=== PATIENT | male | born 1965 | race Caucasian/White ===

== ENCOUNTER 2018-01-31 00:06 | Inpatient (IN) | payer MEDICAID ==
[~2018-01-31] VITALS: Ht 177.8 cm; Wt 87.8 kg
[~2018-01-31 00:06] MED LIST: ALBU90AE INH; CEFD300C37 PO; DOCU-131 PO; DOXY100T PO; ENOX80SY5 SQ; HYDR-3237 PO; IPRA4AER INH; METH4TAB2 PO; METH750T87 PO; VENL150C PO; WARF10TA43 PO; WARF7.5T46 PO; WARF7.5T46 PO-COUM
[2018-01-31] MEDS ORDERED: SODIUM CHLORIDE FLUSH 10ML SYR IVF ONE (00:30)
[2018-01-31 00:39] LABS: BASOPHILS # (AUTO) 0.04 x10^3/uL (0-0.1); BASOPHILS % (AUTO) 1 % (0-1); EOSINOPHILS # (AUTO) 0.12 x10^3/uL (0-0.4); EOSINOPHILS % (AUTO) 2 % (1-7); LYMPHOCYTES # (AUTO) 2.47 x10^3/uL (1-3.4); LYMPHOCYTES % (AUTO) 34 % (22-44); MD NO; MEAN CORPUSCULAR HEMOGLOBIN 33.4 pg (27.5-34.5); MEAN CORPUSCULAR VOLUME 101.1 fL (81-97); MEAN PLATELET VOLUME 7.6 fL (7.4-10.4); MONOCYTES % (AUTO) 8 % (2-9); NEUTROPHILS # (AUTO) 4.02 x10^3/uL (1.8-6.8); NEUTROPHILS % (AUTO) 55 % (42-75); PLATELET COUNT 225 x10^3/uL (130-400); RED BLOOD COUNT 4.35 x10^6/uL (4.38-5.82); RED CELL DISTRIBUTION WIDTH 15.6 % (9.4-14.8)
[2018-01-31 00:46] LABS: INTERNATIONAL NORMALIZED RATIO 1.06 (0.93-1.1)
[2018-01-31 00:49] LABS: ALANINE AMINOTRANSFERASE 24 U/L (12-78); ALBUMIN 3.1 g/dL (3.4-5.0); ANION GAP 7 mmol/L (5-15); CALCIUM 8.8 mg/dL (8.5-10.1); CHLORIDE 105 mmol/L (98-107); CREATININE 1.03 mg/dL (0.7-1.3)
[2018-01-31 00:53] LABS: ALKALINE PHOSPHATASE 133 U/L (45-117); BILIRUBIN,TOTAL 0.8 mg/dL (0.2-1.0); TOTAL PROTEIN 7.4 g/dL (6.4-8.2); TROPONIN I < 0.015 ng/mL (0.000-0.045)
[2018-01-31] MEDS ORDERED: OMNIPAQUE 350 MG/ML, 100ML BOTTLE ONE (01:20)
[2018-01-31] MEDS ORDERED: POLYETHYLENE GLYCOL 17 GM PACKET PO PRN (03:30)
[2018-01-31] MEDS ORDERED: hydrALAzine 20 MG/ML, 1ML IVPush PRN (03:30)
[2018-01-31] MEDS ORDERED: ONDANSETRON 2MG/ML, 2ML IVPush PRN (03:30)
[2018-01-31] MEDS ORDERED: BISACODYL 10 MG SUPP PR PRN (03:30)
[2018-01-31] MEDS ORDERED: DOCUSATE 100 MG CAPSULE PO PRN (03:30)
[2018-01-31] MEDS ORDERED: SILD20TA PO (03:31)
[2018-01-31] MEDS ORDERED: RIVA20TA PO (03:31)
[2018-01-31] MEDS ORDERED: DIGO125T PO (03:31)
[2018-01-31] MEDS ORDERED: DULO30CA2 PO (03:31)
[2018-01-31] MEDS ORDERED: SPIR25TA PO (03:31)
[2018-01-31] MEDS ORDERED: HEPARIN 5,000 UNITS/ML, 1ML IV ONE (04:00)
[2018-01-31] MEDS ORDERED: ALBUTEROL/IPRATROPIUM 2.5MG/0.5MG, 3 ML NPPB PRN (04:30)
[2018-01-31] MEDS: HEPARIN 25,000 UNITS/500ML PMX 500 ML IV PRN (04:37)
[2018-01-31] MEDS: SODIUM CHLORIDE 0.9% 1,000 ML IV SCH ×3 (04:39→20:06)
[2018-01-31 04:44] VITALS: BP 103/72
[2018-01-31 05:41] LABS: FREE T4 (FREE THYROXINE) 1.13 ng/dL (0.76-1.46); THYROID STIMULATING HORMONE 1.38 mIU/L (0.358-3.740)
[2018-01-31 06:07] LABS: HEMOGLOBIN A1C 6.1 % (4.2-6.3)
[2018-01-31] MEDS: ALBUTEROL/IPRATROPIUM 2.5MG/0.5MG, 3 ML NPPB SCH ×2 (07:02→15:13)
[2018-01-31 07:07] VITALS: BP 107/72
[2018-01-31] MEDS: FLUTICASONE/VILANTEROL 200-25MCG/INH INH SCH ×2 (09:00→12:28)
[2018-01-31] MEDS: METHOCARBAMOL 750 MG TABLET PO SCH ×2 (09:37→20:58)
[2018-01-31] MEDS: SILDENAFIL 20 MG TABLET PO SCH ×3 (09:37→20:58)
[2018-01-31 11:05] VITALS: BP 110/68
[2018-01-31] MEDS: HEPARIN 5,000 UNITS/ML, 1ML IV PRN ×2 (11:29→17:34)
[2018-01-31 12:20] LABS: MEAN CORPUSCULAR HGB CONC 33.4 g/dL (33.2-36.2); MEAN CORPUSCULAR VOLUME 101.8 fL (81-97); MEAN PLATELET VOLUME 7.8 fL (7.4-10.4); PLATELET COUNT 191 x10^3/uL (130-400); RED BLOOD COUNT 3.99 x10^6/uL (4.38-5.82); RED CELL DISTRIBUTION WIDTH 15.3 % (9.4-14.8)
[2018-01-31 12:33] LABS: BASOPHILS # (AUTO) 0.03 x10^3/uL (0-0.1); BASOPHILS % (AUTO) 1 % (0-1); EOSINOPHILS # (AUTO) 0.08 x10^3/uL (0-0.4); EOSINOPHILS % (AUTO) 2 % (1-7); LYMPHOCYTES # (AUTO) 2.03 x10^3/uL (1-3.4); LYMPHOCYTES % (AUTO) 41 % (22-44); MD MORPH REVIEW ONLY; MONOCYTES # (AUTO) 0.45 x10^3/uL (0.2-0.8); MONOCYTES % (AUTO) 9 % (2-9); NEUTROPHILS % (AUTO) 48 % (42-75)
[2018-01-31 12:34] LABS: <PLATELET ESTIMATE> ADEQUATE; ANISOCYTOSIS 1+; LARGE PLATELETS 1+
[2018-01-31] MEDS: ONDANSETRON ODT 4 MG PO PRN (16:35)
[2018-01-31 16:41] LABS: MICROSCOPIC NOT IND
[2018-01-31 16:47] LABS: CULTURE INDICATED? NO
[2018-01-31] MEDS: DULOXETINE 30 MG CAPSULE.DR PO SCH (20:58)
[2018-01-31] MEDS: DIGOXIN 0.125 MG TABLET PO SCH (20:58)
[2018-02-01] MEDS: morphine SULFATE 10 MG/ML, 1ML IVPush PRN ×2 (02:54→11:21)
[2018-02-01] MEDS: HEPARIN 25,000 UNITS/500ML PMX 500 ML IV PRN ×2 (03:06→20:41)
[2018-02-01] MEDS: SODIUM CHLORIDE 0.9% 1,000 ML IV SCH ×3 (03:20→20:38)
[2018-02-01 05:30] LABS: BASOPHILS # (AUTO) 0.04 x10^3/uL (0-0.1); BASOPHILS % (AUTO) 1 % (0-1); EOSINOPHILS % (AUTO) 2 % (1-7); LYMPHOCYTES # (AUTO) 1.87 x10^3/uL (1-3.4); LYMPHOCYTES % (AUTO) 42 % (22-44); MD NO; MEAN CORPUSCULAR HEMOGLOBIN 33.6 pg (27.5-34.5); MEAN CORPUSCULAR VOLUME 101.9 fL (81-97); MEAN PLATELET VOLUME 7.4 fL (7.4-10.4); MONOCYTES # (AUTO) 0.44 x10^3/uL (0.2-0.8); MONOCYTES % (AUTO) 10 % (2-9); NEUTROPHILS % (AUTO) 45 % (42-75); PLATELET COUNT 156 x10^3/uL (130-400); RED BLOOD COUNT 3.72 x10^6/uL (4.38-5.82); RED CELL DISTRIBUTION WIDTH 15.2 % (9.4-14.8)
[2018-02-01 05:43] LABS: ALANINE AMINOTRANSFERASE 23 U/L (12-78); ALBUMIN 2.7 g/dL (3.4-5.0); ANION GAP 5 mmol/L (5-15); CALCIUM 8.1 mg/dL (8.5-10.1); CHLORIDE 110 mmol/L (98-107); CREATININE 0.76 mg/dL (0.7-1.3)
[2018-02-01 05:46] LABS: ALKALINE PHOSPHATASE 116 U/L (45-117); BILIRUBIN,TOTAL 0.9 mg/dL (0.2-1.0); CHOL/HDL RATIO 2.8; CHOLESTEROL, TOTAL 123 mg/dL (140-239); HDL CHOL % 36 % (26-37); HDL CHOLESTEROL (DIRECT) 44 mg/dL (40-60); LDL CHOLESTEROL,CALCULATED 65 mg/dL (54-169); LDL/HDL RATIO 1.5 (0.5-3.0); TOTAL PROTEIN 6.4 g/dL (6.4-8.2); TRIGLYCERIDES 68 mg/dL (50-200); VLDL CHOLESTEROL 14 mg/dL (0-25)
[2018-02-01] MEDS: HEPARIN 5,000 UNITS/ML, 1ML IV PRN (05:46)
[2018-02-01] MEDS: METHOCARBAMOL 750 MG TABLET PO SCH ×2 (08:21→20:38)
[2018-02-01] MEDS: FLUTICASONE/VILANTEROL 200-25MCG/INH INH SCH (08:21)
[2018-02-01] MEDS: SILDENAFIL 20 MG TABLET PO SCH ×3 (08:21→20:38)
[2018-02-01 09:00] VITALS: BP 96/69
[2018-02-01 12:39] LABS: FOLATE LEVEL > 20.0 ng/mL (3.1-17.5)
[2018-02-01] MEDS: OXYcodone IR 5MG TABLET PO PRN (13:59)
[2018-02-01] MEDS: DULOXETINE 30 MG CAPSULE.DR PO SCH (20:38)
[2018-02-01] MEDS: DIGOXIN 0.125 MG TABLET PO SCH (20:39)
[2018-02-02] MEDS: morphine SULFATE 10 MG/ML, 1ML IVPush PRN (02:11)
[2018-02-02] MEDS: SODIUM CHLORIDE 0.9% 1,000 ML IV SCH ×3 (03:29→20:30)
[2018-02-02 04:21] LABS: BASOPHILS # (AUTO) 0.04 x10^3/uL (0-0.1); BASOPHILS % (AUTO) 1 % (0-1); EOSINOPHILS # (AUTO) 0.04 x10^3/uL (0-0.4); EOSINOPHILS % (AUTO) 1 % (1-7); LYMPHOCYTES # (AUTO) 1.47 x10^3/uL (1-3.4); LYMPHOCYTES % (AUTO) 39 % (22-44); MD NO; MEAN CORPUSCULAR HEMOGLOBIN 34.3 pg (27.5-34.5); MEAN CORPUSCULAR HGB CONC 33.8 g/dL (33.2-36.2); MEAN CORPUSCULAR VOLUME 101.2 fL (81-97); MEAN PLATELET VOLUME 7.4 fL (7.4-10.4); MONOCYTES # (AUTO) 0.35 x10^3/uL (0.2-0.8); MONOCYTES % (AUTO) 9 % (2-9); NEUTROPHILS # (AUTO) 1.91 x10^3/uL (1.8-6.8); NEUTROPHILS % (AUTO) 50 % (42-75); PLATELET COUNT 139 x10^3/uL (130-400); RED BLOOD COUNT 3.39 x10^6/uL (4.38-5.82)
[2018-02-02] MEDS: HEPARIN 5,000 UNITS/ML, 1ML IV PRN (04:42)
[2018-02-02 09:00] VITALS: BP 119/76
[2018-02-02] MEDS: METHOCARBAMOL 750 MG TABLET PO SCH ×2 (09:18→20:28)
[2018-02-02] MEDS: CYANOCOBALAMIN 1,000 MCG TABLET PO SCH (09:18)
[2018-02-02] MEDS: SILDENAFIL 20 MG TABLET PO SCH ×3 (09:19→20:28)
[2018-02-02] MEDS: FLUTICASONE/VILANTEROL 200-25MCG/INH INH SCH (09:20)
[2018-02-02] MEDS: OXYcodone IR 5MG TABLET PO PRN (12:24)
[2018-02-02] MEDS: HEPARIN 25,000 UNITS/500ML PMX 500 ML IV PRN (16:33)
[2018-02-02] MEDS: DIGOXIN 0.125 MG TABLET PO SCH (20:28)
[2018-02-02] MEDS: DULOXETINE 30 MG CAPSULE.DR PO SCH (20:28)
[2018-02-03] MEDS: SODIUM CHLORIDE 0.9% 1,000 ML IV SCH ×3 (04:22→20:16)
[2018-02-03 07:48] LABS: BASOPHILS # (AUTO) 0.02 x10^3/uL (0-0.1); BASOPHILS % (AUTO) 1 % (0-1); EOSINOPHILS # (AUTO) 0.03 x10^3/uL (0-0.4); EOSINOPHILS % (AUTO) 1 % (1-7); LYMPHOCYTES # (AUTO) 1.58 x10^3/uL (1-3.4); LYMPHOCYTES % (AUTO) 43 % (22-44); MD NO; MEAN CORPUSCULAR HEMOGLOBIN 33.1 pg (27.5-34.5); MEAN CORPUSCULAR HGB CONC 32.6 g/dL (33.2-36.2); MEAN CORPUSCULAR VOLUME 101.6 fL (81-97); MEAN PLATELET VOLUME 9.3 fL (7.4-10.4); MONOCYTES # (AUTO) 0.35 x10^3/uL (0.2-0.8); MONOCYTES % (AUTO) 9 % (2-9); NEUTROPHILS # (AUTO) 1.71 x10^3/uL (1.8-6.8); NEUTROPHILS % (AUTO) 46 % (42-75); PLATELET COUNT 129 x10^3/uL (130-400); RED BLOOD COUNT 3.33 x10^6/uL (4.38-5.82); RED CELL DISTRIBUTION WIDTH 15.1 % (9.4-14.8)
[2018-02-03] MEDS: SILDENAFIL 20 MG TABLET PO SCH ×3 (08:20→20:16)
[2018-02-03] MEDS: METHOCARBAMOL 750 MG TABLET PO SCH ×2 (08:20→20:16)
[2018-02-03] MEDS: CYANOCOBALAMIN 1,000 MCG TABLET PO SCH (08:21)
[2018-02-03] MEDS: FLUTICASONE/VILANTEROL 200-25MCG/INH INH SCH (08:22)
[2018-02-03] MEDS: HEPARIN 25,000 UNITS/500ML PMX 500 ML IV PRN (09:21)
[2018-02-03 10:44] VITALS: BP 92/66
[2018-02-03] MEDS: ACETAMINOPHEN 325 MG TABLET PO PRN (10:53)
[2018-02-03 13:13] VITALS: BP 97/65
[2018-02-03 17:06] LABS: ANA SCREEN NEGATIVE (Negative)
[2018-02-03] MEDS: DULOXETINE 30 MG CAPSULE.DR PO SCH (20:16)
[2018-02-03] MEDS: DIGOXIN 0.125 MG TABLET PO SCH (20:17)
[2018-02-03 20:24] VITALS: BP 101/63
[2018-02-04] MEDS: HEPARIN 25,000 UNITS/500ML PMX 500 ML IV PRN ×3 (01:35→17:25)
[2018-02-04 02:10] VITALS: BP 112/71
[2018-02-04] MEDS: SODIUM CHLORIDE 0.9% 1,000 ML IV SCH ×3 (04:06→17:27)
[2018-02-04] MEDS: HEPARIN 5,000 UNITS/ML, 1ML IV PRN ×2 (08:26→15:20)
[2018-02-04] MEDS: CYANOCOBALAMIN 1,000 MCG TABLET PO SCH (08:26)
[2018-02-04] MEDS: METHOCARBAMOL 750 MG TABLET PO SCH ×2 (08:27→20:04)
[2018-02-04] MEDS: SILDENAFIL 20 MG TABLET PO SCH ×3 (08:27→20:04)
[2018-02-04] MEDS: FLUTICASONE/VILANTEROL 200-25MCG/INH INH SCH (08:30)
[2018-02-04 08:33] VITALS: BP 110/75
[2018-02-04] MEDS: ONDANSETRON ODT 4 MG PO PRN (13:36)
[2018-02-04 15:01] VITALS: BP 110/72
[2018-02-04 17:28] VITALS: BP 113/71
[2018-02-04 19:08] VITALS: BP 97/63
[2018-02-04] MEDS: DULOXETINE 30 MG CAPSULE.DR PO SCH (20:04)
[2018-02-04] MEDS: DIGOXIN 0.125 MG TABLET PO SCH (20:04)
[2018-02-05] MEDS: SODIUM CHLORIDE 0.9% 1,000 ML IV SCH ×3 (00:12→18:08)
[2018-02-05 00:40] VITALS: BP 104/69
[2018-02-05 02:19] VITALS: BP 117/72
[2018-02-05] MEDS: ACETAMINOPHEN 325 MG TABLET PO PRN ×2 (02:27→20:31)
[2018-02-05] MEDS: HEPARIN 25,000 UNITS/500ML PMX 500 ML IV PRN ×2 (05:53→22:04)
[2018-02-05 07:29] VITALS: BP 121/75
[2018-02-05] MEDS: SILDENAFIL 20 MG TABLET PO SCH ×3 (08:37→21:18)
[2018-02-05] MEDS: CYANOCOBALAMIN 1,000 MCG TABLET PO SCH (08:37)
[2018-02-05] MEDS: METHOCARBAMOL 750 MG TABLET PO SCH ×2 (08:37→20:31)
[2018-02-05] MEDS: OXYcodone IR 5MG TABLET PO PRN (08:37)
[2018-02-05] MEDS: FLUTICASONE/VILANTEROL 200-25MCG/INH INH SCH (08:38)
[2018-02-05] MEDS ORDERED: FENTANYL PF 100 MCG/2ML ONE ×2 (11:27→11:39)
[2018-02-05] MEDS ORDERED: MIDAZOLAM 1 MG/ML, 5ML ONE ×2 (11:27→11:40)
[2018-02-05 15:45] VITALS: BP 122/89
[2018-02-05 18:04] VITALS: BP 122/80
[2018-02-05] MEDS: DIGOXIN 0.125 MG TABLET PO SCH (20:31)
[2018-02-05] MEDS: DULOXETINE 30 MG CAPSULE.DR PO SCH (20:31)
[2018-02-06 00:35] VITALS: BP 115/72
[2018-02-06] MEDS: ACETAMINOPHEN 325 MG TABLET PO PRN ×2 (02:01→10:35)
[2018-02-06] MEDS: HEPARIN 5,000 UNITS/ML, 1ML IV PRN (02:11)
[2018-02-06] MEDS: SODIUM CHLORIDE 0.9% 1,000 ML IV SCH (04:05)
[2018-02-06 04:58] LABS: ALBUMIN 2.8 g/dL (3.4-5.0); ANION GAP 5 mmol/L (5-15); CALCIUM 8.3 mg/dL (8.5-10.1); CHLORIDE 109 mmol/L (98-107); CREATININE 0.78 mg/dL (0.7-1.3)
[2018-02-06 06:57] VITALS: BP 127/85
[2018-02-06] MEDS: FLUTICASONE/VILANTEROL 200-25MCG/INH INH SCH ×2 (09:00→16:50)
[2018-02-06] MEDS ORDERED: MAGNESIUM SULFATE PMX 2GM/50ML 50 ML IV ONE (09:00)
[2018-02-06] MEDS ORDERED: OXYMETAZOLINE NASAL SPRAY 0.05%, 15ML NAS PRN (10:00)
[2018-02-06] MEDS ORDERED: ENOXAPARIN 80 MG/0.8 ML SQ SCH (10:00)
[2018-02-06] MEDS: CYANOCOBALAMIN 1,000 MCG TABLET PO SCH (10:29)
[2018-02-06] MEDS: SILDENAFIL 20 MG TABLET PO SCH ×3 (10:29→20:29)
[2018-02-06] MEDS: METHOCARBAMOL 750 MG TABLET PO SCH ×2 (10:30→20:28)
[2018-02-06] MEDS: AMOXICILLIN/CLAV 875-125MG TABLET PO SCH ×2 (12:54→20:28)
[2018-02-06] MEDS: ENOXAPARIN 80 MG/0.8 ML SQ SCH (12:58)
[2018-02-06 14:00] VITALS: BP 113/79
[2018-02-06] MEDS ORDERED: BUTALB/APAP/CAFFEINE 50MG/325MG/40MG PO PRN (17:30)
[2018-02-06] MEDS ORDERED: FUROSEMIDE 20 MG TABLET PO ONE (18:30)
[2018-02-06 18:57] VITALS: BP 123/80
[2018-02-06] MEDS: DIGOXIN 0.125 MG TABLET PO SCH (20:28)
[2018-02-06] MEDS: DULOXETINE 30 MG CAPSULE.DR PO SCH (20:29)
[2018-02-07] MEDS: ENOXAPARIN 80 MG/0.8 ML SQ SCH (00:20)
[2018-02-07 00:43] VITALS: BP 107/73
[2018-02-07 07:53] VITALS: BP 122/84
[2018-02-07] MEDS: AMOXICILLIN/CLAV 875-125MG TABLET PO SCH (08:09)
[2018-02-07] MEDS: METHOCARBAMOL 750 MG TABLET PO SCH (08:09)
[2018-02-07] MEDS: SILDENAFIL 20 MG TABLET PO SCH (08:09)
[2018-02-07] MEDS: CYANOCOBALAMIN 1,000 MCG TABLET PO SCH (08:09)
[2018-02-07] MEDS: FLUTICASONE/VILANTEROL 200-25MCG/INH INH SCH (08:12)
[2018-02-07] MEDS ORDERED: PRED20TA PO (09:35)
[2018-02-07] MEDS ORDERED: ENOX80SY4 SQ (09:35)
[2018-02-07] MEDS ORDERED: AMOX1TAB12 PO (09:35)
[2018-02-07] MEDS ORDERED: FLUT1BLS INH (09:35)
== END 2018-02-07 11:40 | disposition home health service (06) | DRG 175 ==
LOC: ED 00:35 → EDIP 01:14 → 4WST 03:50 → CCU 12:18 → 4NOR 02-03 10:48 → 5SO 02-04 14:49 → 3NW 02-05 18:00
PROVIDERS: ADMIT Internal Medicine; ATTEND Hospitalist
PROC: 0DJ08ZZ Inspection of Upper Intestinal Tract, Via Natural or Artificial Opening Endoscopic (ICD-10-PCS; principal; 2018-01-31)
DX: I26.09 Other pulmonary embolism with acute cor pulmonale (principal); J96.21 Acute and chronic respiratory failure with hypoxia; I50.33 Acute on chronic diastolic (congestive) heart failure; D68.51 Activated protein C resistance; D68.32 Hemorrhagic disorder due to extrinsic circulating anticoagulants; D68.59 Other primary thrombophilia; I07.1 Rheumatic tricuspid insufficiency; I95.9 Hypotension, unspecified; R04.2 Hemoptysis; I27.21 Secondary pulmonary arterial hypertension; G89.29 Other chronic pain; I11.0 Hypertensive heart disease with heart failure; F17.210 Nicotine dependence, cigarettes, uncomplicated; I50.82 Biventricular heart failure; I73.9 Peripheral vascular disease, unspecified; M54.9 Dorsalgia, unspecified; T45.515A Adverse effect of anticoagulants, initial encounter; Y92.89 Other specified places as the place of occurrence of the external cause; J44.9 Chronic obstructive pulmonary disease, unspecified; Z86.711 Personal history of pulmonary embolism; Z86.718 Personal history of other venous thrombosis and embolism; Z99.81 Dependence on supplemental oxygen
CPT/HCPCS: 36415; 70450; 71045; 71275; 80048; 80053; 80061; 81003; 81241; 82040; 82607; 82746; 83036; 83520; 83735; 83880; 84100; 84439; 84443; 84484; 85014; 85018; 85025; 85300; 85301; 85520; 85598; 85610; 85613; 85670; 85730; 85732; 86038; 86146; 86147; 86256; 86850; 86900; 87040; 87070; 87081; 87147; 87205; 93005; 93306; 93970; 99152; 99153; 99285; J1644; J1650; J2250; J3010; Q0162; Q9967; J2270; J3475; J7030; J7512